=== PATIENT | female | born 2000 | race Caucasian/White ===

== ENCOUNTER 2020-02-03 15:44 | Emergency (ER) | payer MEDICAID, SELFPAY ==
[2020-02-03 15:53] VITALS: BP 139/85; PULSE 85; RESP 17; TEMP 36.9; O2SAT 100; BMI 34.9
--- NOTE | 2020-02-03 16:00 | HMH.EDUTC ---
[facility] Disposition Clinical Impression: Left otitis media Qualifiers: Otitis media type: suppurative Chronicity: acute Recurrence: non-recurrent Spontaneous tympanic membrane rupture: without spontaneous rupture Qualified Code(s): H66.002 - Acute suppurative otitis media without spontaneous rupture of ear drum, left ear Disposition: Home, Self-Care Condition on Discharge: Good Instructions: DI for Otitis Media (Middle Ear Infection)-Child Prescriptions: Cefdinir [Omnicef 300mg Capsule] 300 mg PO BID #20 cap Transmission Status: Pending to [id number] predniSONE [Prednisone 20mg Tab] 20 mg PO BID 5 Days #10 tab Transmission Status: Pending to [facility] # [id number] Pseudoephedrine HCl [Pseudoephedrine 30mg Tablet] 30 mg PO Q6HP PRN 10 Days #20 tab PRN Reason: congestion/ear pressure Transmission Status: Pending to [facility] # [id number] Referrals: PCP,No [Primary Care Provider] - Time of Disposition: 16:10 Medical Decision Making - Terrell Inquiry Pt receiving controlled substance: No Vital Signs: 02/03/20 15:53 Temperature 98.5 F Temperature Source Oral Pulse Rate [Right Radial] 85 Respiratory Rate 17 Blood Pressure [Right Arm] 139/85 Blood Pressure Mean [Right Arm] 103 02 Sat by Pulse Oximetry 100 [facility] HPI - General Stated complaint: ear pain Time Seen by Provider: 02/03/20 16:00 Mode of Arrival: Ambulatory Source of Information: Patient Limitations: No Limitations Description of Symptoms (Recalled from Triage Doc. by RN): left ear pain. pt has been seen and is on antibiotics already. - History of Present Illness Provider Complaint: Left ear pain X 2-3 days. Is on Amoxicillin and Cipro drops but states it is not helping. Pain is unbearable. Feels like the pressure behind her ear is about to rupture it. Can't sleep and can't get any relief at all. No fever. No history of ear problems. Onset (ago): day(s) (2-3) Relieving factors: none Exacerbating factors: none Treatments prior to arrival: other (Amoxil, Cipro otic drops) - Related Data Previous Rx's Medication Instructions Recorded Cefdinir [Omnicef 300mg Capsule] 300 mg PO BID #20 cap 02/03/20 Pseudoephedrine HCl 30 mg PO Q6HP PRN 10 Days #20 tab 02/03/20 [Pseudoephedrine 30mg Tablet] predniSONE [Prednisone 20mg 20 mg PO BID 5 Days #10 tab 02/03/20 Tab] [facility] History - Hepatitis A Screen Attestation statement:: This patient has been screened for Hepatitis A risk factors. I have reviewed the patient's past medical history: Yes ROS Obtained: Yes All systems reviewed & no additional complaints - ENT Ears, Nose, Mouth, and Throat: Reports otalgia Physical Exam - General General appearance: alert, in no apparent distress - Head Head exam: atraumatic, normocephalic, normal inspection - Eye Eye exam: Present: normal appearance, PERRL, EOMI - ENT ENT exam: Present: normal exam, normal oropharynx, mucous membranes moist, normal external ear exam - Expanded ENT Exam TM/Canal exam: Left TM: erythema, bulging, effusion - Neck Neck exam: Present: normal inspection, full ROM, trachea midline. Absent: meningismus, lymphadenopathy - Chest Chest inspection: Present: normal inspection, symmetric chest wall rise. Absent: tenderness - Respiratory Respiratory exam: Present: normal lung sounds bilaterally. Absent: respiratory distress - Cardiovascular Cardiovascular exam: Present: regular rate, normal rhythm. Absent: JVD - Abdominal Exam Abdominal exam: Present: soft, normal bowel sounds. Absent: distention, tenderness, guarding - Extremities Exam Extremities exam: Present: normal inspection, full ROM, normal capillary refill. Absent: calf tenderness - Back Exam Back exam: Present: normal inspection. Absent: tenderness - Neurological Exam Neurological exam: Present: alert, oriented X3 - Psychiatric Psychiatric exam: Present: normal affect, normal mood - Skin Skin exam: Prese
[2020-02-03 16:02] VITALS: BP 139/85; PULSE 85; RESP 17; TEMP 36.9; O2SAT 100; BMI 34.9
[2020-02-03 16:23] VITALS: BP 139/85; PULSE 85; RESP 17; TEMP 36.9; O2SAT 100
== END 2020-02-03 16:38 | disposition home or self-care (01) ==
PROVIDERS: Emergency Provider Physician Assistant
DX: H66.002 Acute suppurative otitis media without spontaneous rupture of ear drum, left ear (principal)
CPT/HCPCS: 96372; 99201; J1040

== ENCOUNTER → 2021-02-12 17:41 | Outpatient (CLI) | payer MEDICAID, SELFPAY | PROVIDERS: PCP Pediatrics; Visit Provider Nurse Practitioner | DX: Z20.822 Contact with and (suspected) exposure to COVID-19 (principal) | CPT/HCPCS: C9803; U0003; U0005 ==